=== PATIENT | female | born 1955 | race Caucasian/White ===

== ENCOUNTER 2023-04-17 06:33 | Day surgery (SDC) | payer MEDICARE, BC ==
[2023-04-17] VITALS (12 sets, daily range): BP systolic 99–119; BP diastolic 61–66; PULSE 60–68; RESP 13–16; TEMP 96.8; O2SAT 94–98
[~2023-04-17] VITALS: Ht 157.5 cm; Wt 109.1 kg
[~2023-04-17 06:33] MED LIST: AMOX-580 PO; ASPI-12 PO; ATRIN IH; CELE-193 PO; CHOL500044 PO; CYAN5000 SL; CYCL-1 PO; DOCUMENT DATE & TIME OF BETA-BLOCKER PO ONE; DULO60CA65 PO; ESTR0.5T4 VG; FURO40TA4 PO; GUAI600T45 PO; HYDR-3972 PO; IPRA3AMP31 IH; LEVO5TAB29 PO; LOSA25TA41 PO; METO10TA8 PO; OMEG100037 PO; POTA-366 PO; PROBIOTIC; ROSU20TA73 PO; SENN8.6T19 PO; SERT-433 PO; SOTA80TA73 PO; TURMERIC; VIT D; [UNRECOGNIZED DRUG - OTHER]; albuterol 2.5 MG/3 ML nebule NEB ONE; famotidine 20mg tablet PO ONE; oxymetazoline 15 ML nasal spray NS ONE; ringers solution, lacted 1,000 ML IV SCH; tranexamic acid inj. 1,000 MG in normal saline IV soln 100ML IV ONE
[2023-04-17] MEDS ORDERED: epiNEPHrine 1 mg/ml inj ONE (06:54)
[2023-04-17] MEDS ORDERED: LIDOcaine 1% W/epiNEPHrine 1:100,000 20ml vial ONE (06:54)
[2023-04-17] MEDS ORDERED: cocaine 4% topical solution 4ml bottle ONE (06:54)
[2023-04-17] MEDS ORDERED: oxymetazoline 15 ML nasal spray NS ONE (06:57)
[2023-04-17] MEDS ORDERED: mupirocin 2% ointment 22GM ONE ×2 (06:57→06:59)
[2023-04-17] MEDS ORDERED: LIDOcaine 1% w/EPI 1:100,000 inj. MDV 50 ML VIAL ONE (07:02)
[2023-04-17] MEDS ORDERED: albuterol 2.5 MG/3 ML nebule NEB ONE (07:25)
[2023-04-17] MEDS ORDERED: morphine 2 MG/ML inj. syringe IV PRN (08:10)
[2023-04-17] MEDS ORDERED: ringers solution, lacted 1,000 ML IV SCH (08:10)
[2023-04-17] MEDS ORDERED: ondansetron/PF 4mg/2ml inj IV PRN (08:10)
[2023-04-17] MEDS ORDERED: hydrALAZINE 20mg/ml inj. IV PRN (08:10)
[2023-04-17] MEDS ORDERED: morphine 4 MG/ML inj SYRINge IV PRN (08:10)
[2023-04-17] MEDS ORDERED: acetaminophen 1,000mg/100ml IV 100 ML IV ONE (08:25)
[2023-04-17] MEDS ORDERED: tranexamic acid 100mg/ml inj. ONE (08:29)
--- NOTE | 2023-04-17 09:19 | NUR ---
Received from OR via [facility], accompanied by Anesthesiologist DR GILES and report given by Anesthesiolgist AND OR ASSISTANT. PT AWAKE, DENIES PAIN, VSS. NO DRESSINGS, NO DRAINAGE. Addendum: 04/17/23 at 1004 by Radha Henley RN Amended: Links added.
[2023-04-17] MEDS ORDERED: oxymetazoline 15 ML nasal spray NS PRN (09:45)
[2023-04-17] MEDS ORDERED: mupirocin 2% nasal ointment 1gm UD NS SCH (10:15)
--- NOTE | 2023-04-17 10:49 | NUR ---
PT UP AND ABLE TO AMBULATE SAFELY W/HER SEATED WALKER, VOIDED X 1. D/C INSTRUCTIONS GIVEN, DEMONSTRATED AND GONE OVER W/PT WHO VERBALIZED UNDERSTANDING. PT DC/D TO HOME VIA WALKING W/FRONT SEATED WALKER W/RN TO PRIVATE VEHICLE W/O INCIDENT. Addendum: 04/17/23 at 1112 by Radha Henley RN Amended: Links added.
[2023-04-17] MEDS ORDERED: salt irrigation nasal spray 45 ML SPRAY NS SCH (11:00)
== END 2023-04-17 10:49 | disposition home or self-care (01) ==
LOC: PAS 06:33
PROVIDERS: ATTEND Otolaryngology
DX: J32.8 Other chronic sinusitis (principal); J34.89 Other specified disorders of nose and nasal sinuses; D80.3 Selective deficiency of immunoglobulin G [IgG] subclasses; J44.9 Chronic obstructive pulmonary disease, unspecified; E66.01 Morbid (severe) obesity due to excess calories; Z68.41 Body mass index [BMI] 40.0-44.9, adult; G47.30 Sleep apnea, unspecified; I11.0 Hypertensive heart disease with heart failure; I50.9 Heart failure, unspecified; I47.1 Supraventricular tachycardia; I48.91 Unspecified atrial fibrillation; I25.10 Atherosclerotic heart disease of native coronary artery without angina pectoris; K21.9 Gastro-esophageal reflux disease without esophagitis; M19.90 Unspecified osteoarthritis, unspecified site; F32.A Depression, unspecified; Z79.899 Other long term (current) drug therapy; Z98.890 Other specified postprocedural states
CPT/HCPCS: 31253; 61782; 82948; 87070; 87075; 87102; 94640; 94760; A6402; C2625; J0131; J3490; J7030; J7050; J7120; Z7506; Z7512; A4618; A6449; A7000; J0171